=== PATIENT | female | born 1940 ===

== ENCOUNTER 2017-12-28 14:33 | Emergency (ER) | payer MEDICARE, BC ==
[2017-12-28 15:36] VITALS: BP 131/64
--- NOTE | 2017-12-28 16:30 | UC ---
Karthik Nielsen Julia, scribed for Silvana Benavidez MD on 12/28/17 at 1551 . General HPI - HPI Summary HPI Summary: This patient is a 77 year old F presenting to [facility] with a chief complaint of waxing and waning cough, fever, headaches, body aches, nausea and diarrhea since11/12/17 while in [facility]. Her symptoms began as a dry cough, sore throat, and general malaise. Sore throat is currently resolved. Reports a max fever of 102 at home; she took 1000mg of Tylenol prior to arrival. Denies CP, SOB, vomiting, abdominal pain, ear pain, and dysuria. One sick contact( grand child)in family, diagnosed with viral illness. Patient reports diarrhea x 2 weeks, has two BM today and 2 BM yesterday. She states that she noticed a trace amount of blood on toilet paper, but denies any gross blood in the stool. She has been taking Lomotil without relief. Last colonoscopy was performed 11 years ago. Allergies reviewed. - History of Current Complaint Chief Complaint: UCGeneralIllness Stated Complaint: FEVER Time Seen by Provider: 12/28/17 15:30 Hx Obtained From: Patient Onset/Duration: Lasting Weeks, Still Present Timing: Constant Pain Intensity: 0 Pain Location at: negative Alleviating: nothing Associated Signs & Symptoms: Positive: Cough, Fever - positive: sore throat, general malaise negative:ear pain dysuria, Headache, Nausea, Other - positive: sore throat, general malaise negative:ear pain dysuria. Negative: Abdominal Pain, Chest Pain, SOB, Vomiting - Allergy/Home Medications Allergies/Adverse Reactions: Allergies Allergy/AdvReac Type Severity Reaction Status Date / Time Sulfa (Sulfonamide Allergy Unknown Verified 12/28/17 15:28 Antibiotics) Reaction Details Home Medications: Home Medications Levothyroxine TAB* [Synthroid 75 MCG TAB*] 1 tab 12/28/17 [History] PMH/Surg Hx/FS Hx/Imm Hx Previously Healthy: Yes Endocrine History: Hypothyroidism Other Cardiovascular History: negative Other Respiratory History: negative Other GI/ History: negative Other Neurological History: negative Other Psychological History: negative Other Cancer History: negative - Surgical History Surgical History: Yes Surgery Procedure, Year, and Place: hernia repair, t&a, appy - Family History Known Family History: Positive: Hypertension - Social History Alcohol Use: Occasionally Substance Use Type: None Smoking Status (MU): Never Smoked Tobacco Review of Systems Constitutional: Fever, Fatigue - general malaise Skin: Negative Eyes: Negative ENT: Negative - ear pain, Sore Throat Respiratory: Negative - SOB, Cough - non productive Cardiovascular: Negative Gastrointestinal: Negative - abdominal pain and vomiting, Diarrhea, Nausea, Other - blood in stool Genitourinary: Negative Motor: Negative Neurovascular: Negative Musculoskeletal: Myalgia Neurological: Headache Psychological: Negative Is Patient Immunocompromised?: No All Other Systems Reviewed And Are Negative: Yes Physical Exam - Summary Physical Exam Summary: Appearance: Well-Appearing, No Pain Distress, Well-Nourished Eyes: conjunctiva clear, no discharge ENT: Hearing grossly normal, no muffled/hoarse voice. Bilateral Tympanic membrane is normal appearing . No significant pharyngeal erythema. Neck: Normal, Supple Respiratory/Lung Sounds: Lungs clear, Normal breath sounds, No respiratory distress, No accessory muscle use Cardiovascular: RRR, No murmur Abdomen: Nontender, Soft, no guarding, not distended Bowel Sounds: Present Musculoskeletal: Normal Neurological: Alert, muscle tone normal Psychiatric:Normal, age appropriate behavior Skin: Normal, Warm, Dry, Normal color Triage Information Reviewed: Yes Vital Signs: Initial Vital Signs Temp 98.2 F 12/28/17 15:23 Pulse 75 12/28/17 15:23 Resp 18 12/28/17 15:23 BP 131/64 12/28/17 15:23 Pulse Ox 98 12/28/17 15:23 Vital Signs Reviewed: Yes Course/Dx - Course Course Of Treatment: During the visit today, we discussed the findings and further plan . Gave her a stool Kit for stool studies since she has diarrhea for past 2 weeks and has reported blood in stool. She will follow up with gastroenterolgy for a possible colonoscopy. Information provided to her. Plan to treat it as atypical pneumonia. I will prescribe the medication to the pharmacy . Patient expressed understanding . - Differential Dx - Multi-Symptom Provider Diagnoses: Atypical pneumonia. diarrhea. blood in stool Discharge - Sign-Out/Discharge Documenting (check all that apply): Discharge/Admit/Transfer - Discharge Plan Condition: Stable Disposition: HOME Prescriptions: Azithromyxin RONNIE (NF) [Z-Ronnie (Zithromax) 250 mg tabs #6] 2 tab PO .TODAY, THEN 1 DAILY #6 tab Benzonatate CAP* [Tessalon 100 MG CAP*] 100 mg PO TID PRN #30 cap PRN Reason: Cough Patient Education Materials: Acute Diarrhea (ED), Pneumonia (ED), Melena (ED) Referrals: Radha Roberts MD [Primary Care Provider] - 1 Week Additional Instructions: Start taking the antibiotic . It has been prescribed to the pharmacy . Follow up with your primary care doctor in 1 week . Please follow up with gastroenterology for the consult as there was blood in your stool . Please bring your stool sample for lab testing . Ok to take tylenol for fever. Keep yourself hydrated. Return to Urgent care / ER if symptoms get worse. Information for Gatroenterology clinic for possible colonoscopy : [facility] [id number] - Billing Disposition and Condition Condition: STABLE Disposition: Home The documentation as recorded by the Karthik woo Julia accurately reflects the service I personally performed and the decisions made by me, Silvana Benavidez MD.
== END 2017-12-28 16:25 | disposition home or self-care (01) ==
LOC: UCEAST 14:33
DX: J18.9 Pneumonia, unspecified organism (principal); R19.7 Diarrhea, unspecified; K92.1 Melena; R51 Headache; R11.0 Nausea; Z88.2 Allergy status to sulfonamides; E03.9 Hypothyroidism, unspecified; Z79.899 Other long term (current) drug therapy
CPT/HCPCS: 99202; G0463